=== PATIENT | male | born 1960 | race Caucasian/White ===

== ENCOUNTER 2017-08-19 05:50 | Inpatient (IN) | payer MEDICARE, OTHER ==
[~2017-08-19] VITALS: Ht 170.2 cm; Wt 86.6 kg
--- NOTE | 2017-08-19 10:00 | NUR ---
GPS RN NOTE PT IS A 57 Y/O MALE, BROUGHT INTO THE HOSPITAL BY AMBULANCE, ADMITTED ON A 5150 HOLD FOR DANGER TO OTHERS FROM [facility]. PT IS ADMITTED ON 5150 HOLD FOR DANGER TO OTHERS. PT WAS FOUND TO BE DISTURBING A BUSINESS, PT WAS CONTACTED AND STATED HE DID NOT FEEL WELL AND WANTED TO HURT OTHER PEOPLE. IT WAS DETERMINED PT WAS NOT TAKING HIS MEDICATIONS. PT IS ALERT AND ORIENTED X2, AMBULATORY, COOPERATIVE, DEPRESSED, FLAT AFFECT, DENIES SI/HI AT THE TIME OF ADMISSION, VS STABLE, PT IS ORIENTED TO THE UNIT, ALL VALUABLES HAVE BEEN CHECKED, ALL PAPERWORK AND COMPUTER WORK HAS BEEN SIGNED. Addendum: 08/19/17 at 1500 by RONAK ASHFORD RN PATIENT'S RIGHTS HANDBOOK HAS BEEN GIVEN AND EXPLAINED TO PT, PT VERBALIZES UNDERSTANDING. WILL MONITOR PT Q15MIN FOR SAFETY AND BEHAVIOR.
[2017-08-19] MEDS ORDERED: LORAZEPAM 0.5 MG TABLET PO PRN (13:30)
[2017-08-19] MEDS ORDERED: MAGNESIUM HYDROXIDE 30 ML UDC PO PRN ×2 (13:30→17:00)
[2017-08-19] MEDS ORDERED: MAG HYDROX/AL HYDROX/SIMETH 30 ML UDC PO PRN ×2 (13:30→17:00)
[2017-08-19] MEDS ORDERED: LINA5TAB PO (13:34)
[2017-08-19] MEDS ORDERED: BUPR300T52 PO (13:34)
[2017-08-19] MEDS ORDERED: QUET400T PO (13:34)
[2017-08-19] MEDS ORDERED: ATOR20TA PO (13:34)
[2017-08-19] MEDS ORDERED: INSU100I30 SQ (13:34)
[2017-08-19] MEDS ORDERED: GABA-534 PO (13:34)
[2017-08-19] MEDS ORDERED: METF500T4 PO (13:34)
[2017-08-19 16:00] VITALS: BP 148/89
[2017-08-19] MEDS ORDERED: ACETAMINOPHEN 325 MG TABLET PO PRN (17:00)
[2017-08-19] MEDS ORDERED: DEXTROSE 50%-WATER 50 ML DISP.SYRIN IV PRN ×2 (17:30→20:30)
[2017-08-19] MEDS: HALOPERIDOL 5 MG TABLET PO SCH (17:51)
[2017-08-19] MEDS: BENZTROPINE MESYLATE (1 MG) 1 MG TABLET PO SCH (17:51)
[2017-08-19] MEDS: INSULIN REGULAR, HUMAN 100 UNIT/ML 3 ML VIAL SQ PRN ×2 (18:03→21:34)
[2017-08-19] MEDS: BLOOD SUGAR DIAGNOSTIC 1 EACH STRIP IN SCH ×2 (18:05→21:33)
[2017-08-19 19:06] LABS: BASOPHILS % (AUTO) 0.5 % (0.0-2.0); EOSINOPHILS # (AUTO) 0.4 /CMM (0.0-0.7); EOSINOPHILS % (AUTO) 5.4 % (0.0-6.0); HEMATOCRIT 35 % (39-51); HEMOGLOBIN 11.7 g/dL (13.5-17.5); LYMPHOCYTES # (AUTO) 1.1 /CMM (0.8-4.8); LYMPHOCYTES % (AUTO) 14.9 % (20.0-44.0); MEAN CORPUSCULAR HEMOGLOBIN 30 PG (26.0-33.0); MEAN CORPUSCULAR HGB CONC 34 g/dl (31.0-36.0); MEAN CORPUSCULAR VOLUME 90 fL (80-96); MONOCYTES # (AUTO) 0.7 /CMM (0.1-1.30); MONOCYTES % (AUTO) 9.2 % (2.0-12.0); NEUTROPHILS # (AUTO) 5.3 /CMM (1.8-8.9); PLATELET COUNT (AUTO) 248 /CMM (150-450); RDW COEFFICIENT OF VARIATION 15.1 (11.5-15.0); WHITE BLOOD COUNT (AUTO) 7.6 K/uL (4.3-11.0)
[2017-08-19 20:14] VITALS: BP_SYST 148; BP_SYST 166; BP_DIAS 54; BP_DIAS 86
--- NOTE | 2017-08-19 20:24 | NUR ---
GPS RN NOTES: PAGED DR. MEDINA FOR MED RECON AND TO REFER TOTAL CREATININE KINASE RESULT OF 1141. SHE CALLED BACK NO FURTHER ORDERS GIVEN OF THIS TIME. WILL ENDORSE TO DAY SHIFT NURSE. HOME MEDS CONTINUED PER DR. DAVE.
[2017-08-19] MEDS ORDERED: INSULIN REGULAR, HUMAN 100 UNIT/ML 3 ML VIAL SQ PRN (20:30)
[2017-08-19] MEDS: GABAPENTIN 300 MG CAPSULE PO SCH (20:30)
[2017-08-19 21:30] LABS: CREATINE KINASE MB 2.4 ng/mL (0-3.6)
[2017-08-19] MEDS: ATORVASTATIN 10 MG TABLET PO SCH (21:30)
[2017-08-19] MEDS ORDERED: BLOOD SUGAR DIAGNOSTIC 1 EACH STRIP IN SCH (22:00)
--- NOTE | 2017-08-20 06:00 | NUR ---
GPS RN NOTES; SKIN AND BODY ASSESSMENT DONE. PICTURES DONE AND PLACED IN THE CHART. PATIENT ONLY ALLOWED HIS EXTREMITIES TO BE CHECKED. HE REFUSED HIS BACK AND ABDOMINAL AREA CHECKED. WILL ENDORSED PATIENT TO DAY SHIFT NURSE.
[2017-08-20 07:45] LABS: ALBUMIN 3.2 g/dL (3.4-5.0); BILIRUBIN,TOTAL 0.4 mg/dL (0.2-1.0); CALCIUM, SERUM 8.5 mg/dL (8.5-10.1); TOTAL PROTEIN, SERUM 6.8 g/dL (6.4-8.2)
[2017-08-20] MEDS: BLOOD SUGAR DIAGNOSTIC 1 EACH STRIP IN SCH ×4 (07:54→21:22)
[2017-08-20 08:00] VITALS: BP 132/80
[2017-08-20] MEDS ORDERED: METFORMIN 500 MG TABLET PO SCH (09:00)
--- NOTE | 2017-08-20 09:00 | NUR ---
GPS/RN-NOTES PATIENT BLOOD SUGAR WAS 180MG/DL, REFUSED 3 UNITS OF R INSULIN COVERAGE. STATED" NO INSULIN". EXPLAINED RISK AND BENEFITS STILL REFUSED. NO S/SX OF HYPERGLYCEMIA NOTED AT THIS TIME.WILL CONT. MONITORING.
[2017-08-20] MEDS: BENZTROPINE MESYLATE (1 MG) 1 MG TABLET PO SCH ×2 (09:50→17:09)
[2017-08-20] MEDS: HALOPERIDOL 5 MG TABLET PO SCH ×2 (09:51→17:09)
[2017-08-20] MEDS: GABAPENTIN 300 MG CAPSULE PO SCH ×3 (09:51→17:09)
[2017-08-20] MEDS: LINAGLIPTIN 5 MG TABLET PO SCH (09:52)
[2017-08-20 11:30] LABS: CREATINE KINASE MB 1.2 ng/mL (0-3.6)
[2017-08-20 12:22] LABS: ALBUMIN 3.3 g/dL (3.4-5.0); BILIRUBIN,TOTAL 0.4 mg/dL (0.2-1.0); CALCIUM, SERUM 8.7 mg/dL (8.5-10.1); POTASSIUM 4.4 mmol/L (3.5-5.1); TOTAL PROTEIN, SERUM 7.1 g/dL (6.4-8.2)
[2017-08-20] MEDS: INSULIN REGULAR, HUMAN 100 UNIT/ML 3 ML VIAL SQ PRN ×3 (12:36→21:43)
--- NOTE | 2017-08-20 12:41 | NUR ---
GPS/RN-NOTES PATIENT BLOOD SUGAR WAS 206 MG/DL, 4 UNITS OF R INSULIN GIVEN ORDERED.
[2017-08-20 16:00] VITALS: BP 146/55
[2017-08-20] MEDS: METFORMIN 850 MG TABLET PO SCH (17:09)
--- NOTE | 2017-08-20 17:29 | NUR ---
GPS/RN-NOTES PATIENT BLOOD SUGAR WAS 167 MG/DL, 3 UNITS OF R INSULIN GIVEN ORDERED.
--- NOTE | 2017-08-20 19:29 | NUR ---
GPS/RN-NOTES PATIENT REFUSED FULL BODY ASSESSMENT,DESPITE EXPLANATIONS OF UNIT POLICIES. PATIENT GETS ANGRY AT THE PRODUCT MARKETING EXECUTIVE AND STATED "LEAVE ME ALONE".
[2017-08-20] MEDS ORDERED: DIVALPROEX SODIUM 500 MG TABLET.DR PO SCH (20:00)
--- NOTE | 2017-08-20 20:00 | NUR ---
GPS RN NOTES: SKIN BODY REASSESSMENT CHECKED ON PATIENT'S BACK AND ABDOMINAL AREA ENDORSED BY DAY SHIFT NURSE SKIN INTACT AND CLEAR.
[2017-08-20 20:06] VITALS: BP 143/79
[2017-08-20] MEDS: ATORVASTATIN 10 MG TABLET PO SCH (21:07)
[2017-08-21] MEDS: BLOOD SUGAR DIAGNOSTIC 1 EACH STRIP IN SCH ×4 (07:31→22:05)
[2017-08-21] MEDS: GABAPENTIN 300 MG CAPSULE PO SCH ×3 (08:17→17:20)
[2017-08-21] MEDS: LINAGLIPTIN 5 MG TABLET PO SCH (08:17)
[2017-08-21] MEDS: BENZTROPINE MESYLATE (1 MG) 1 MG TABLET PO SCH ×2 (08:17→17:20)
[2017-08-21] MEDS: METFORMIN 850 MG TABLET PO SCH ×2 (08:17→17:20)
[2017-08-21] MEDS: HALOPERIDOL 5 MG TABLET PO SCH ×2 (08:17→17:20)
[2017-08-21] MEDS: INSULIN REGULAR, HUMAN 100 UNIT/ML 3 ML VIAL SQ PRN ×2 (09:36→17:32)
[2017-08-21 11:33] VITALS: BP 155/84
--- NOTE | 2017-08-21 12:08 | NUR ---
RN NOTE: ACCUCHECK WAS 176 AT 1200. PATIENT REFUSED COVERAGE.
[2017-08-21 16:00] VITALS: BP 111/67
[2017-08-21 21:02] VITALS: BP 113/66
[2017-08-21] MEDS: ATORVASTATIN 10 MG TABLET PO SCH (21:46)
--- NOTE | 2017-08-21 22:05 | NUR ---
GPS/RN-NOTES: PATIENT BLOOD SUGAR WAS 184MG/DL, REFUSED 3 UNITS OF R INSULIN COVERAGE. STATED" NO INSULIN". EXPLAINED RISK AND BENEFITS STILL REFUSED. WILL CONT. MONITORING. NO EPISODE OF HYPERGLYCEMIA NOTED.
[2017-08-22] MEDS: INSULIN REGULAR, HUMAN 100 UNIT/ML 3 ML VIAL SQ PRN ×2 (02:48→11:51)
[2017-08-22] MEDS: BLOOD SUGAR DIAGNOSTIC 1 EACH STRIP IN SCH ×4 (07:30→21:31)
[2017-08-22] MEDS: LINAGLIPTIN 5 MG TABLET PO SCH (08:07)
[2017-08-22] MEDS: BENZTROPINE MESYLATE (1 MG) 1 MG TABLET PO SCH ×2 (08:07→16:53)
[2017-08-22] MEDS: HALOPERIDOL 5 MG TABLET PO SCH ×2 (08:07→16:53)
[2017-08-22] MEDS: GABAPENTIN 300 MG CAPSULE PO SCH ×3 (08:07→16:53)
[2017-08-22] MEDS: METFORMIN 850 MG TABLET PO SCH ×2 (08:08→16:53)
[2017-08-22 08:31] VITALS: BP 162/80
--- NOTE | 2017-08-22 11:11 | NUR ---
Initial discharge plan: Patient is currently homeless. Patient states that he previously stayed with one of his daughters, but does not disclose who and does not want to involve her. ARSEN Morrison spoke with patient. Patient stated that he did not know where he wants to go and stated that he is going to go back to the streets. Later, patient asked SW to contact his sister Pretty [phone]. Patient stated that he could live with her in [place]. SW attempted to contact Pretty but her voicemail box was full and SW was unable to leave message. SW to follow up later. SW to facilitate safe discharge plan.
[2017-08-22] MEDS ORDERED: ESCITALOPRAM OXALATE (10 MG) 10 MG TABLET PO SCH (14:00)
[2017-08-22 16:49] VITALS: BP 126/81
[2017-08-22 20:00] VITALS: BP 132/83
[2017-08-22] MEDS: ATORVASTATIN 10 MG TABLET PO SCH (21:30)
[2017-08-22] MEDS: TEMAZEPAM 7.5 MG CAPSULE PO PRN (21:31)
--- NOTE | 2017-08-22 22:10 | NUR ---
GPS/RN-NOTES: PATIENT REFUSED BLOOD SUGAR TO BE CHECKED. STATED "LEAVE ME ALONE, I WANT TO REST". EXPLAINED RISK AND BENEFITS PT STILL REFUSED. WILL CONTINUE TO MONITOR FOR S/SX OF HYPO/HYPERGLYCEMIA.
[2017-08-23 08:00] VITALS: BP 134/87
[2017-08-23] MEDS: BLOOD SUGAR DIAGNOSTIC 1 EACH STRIP IN SCH ×4 (08:00→21:46)
[2017-08-23] MEDS: INSULIN REGULAR, HUMAN 100 UNIT/ML 3 ML VIAL SQ PRN ×2 (08:02→21:47)
[2017-08-23] MEDS: LINAGLIPTIN 5 MG TABLET PO SCH (08:18)
[2017-08-23] MEDS: GABAPENTIN 300 MG CAPSULE PO SCH ×3 (08:18→17:09)
[2017-08-23] MEDS: METFORMIN 850 MG TABLET PO SCH ×2 (08:18→17:09)
[2017-08-23] MEDS: BENZTROPINE MESYLATE (1 MG) 1 MG TABLET PO SCH ×2 (08:18→17:08)
[2017-08-23] MEDS: HALOPERIDOL 5 MG TABLET PO SCH ×3 (08:18→17:09)
--- NOTE | 2017-08-23 08:20 | NUR ---
GPS/RN-NOTES PATIENT BLOOD SUGAR WAS 209 MG/DL, 4 UNITS OF R INSULIN GIVEN ORDERED.
--- NOTE | 2017-08-23 10:33 | NUR ---
Discharge Planning: ARSEN contacted pts sister Pretty, for discharge planning purposes. ARSEN was unable to leave a message due to mailbox being full. ARSEN however was able to send a phone # as an option. ARSEN send . ARSEN will follow up to ensure pt is safely and properly discharged.
--- NOTE | 2017-08-23 12:15 | NUR ---
GPS/RN-NOTES PATIENT BLOOD SUGAR WAS 174 MG/DL, REFUSED 3 UNITS OF R INSULIN COVERAGE. STATED" NO INSULIN". EXPLAINED RISK AND BENEFITS STILL REFUSED. NO S/SX OF HYPERGLYCEMIA NOTED AT THIS TIME.WILL CONT. MONITORING.
[2017-08-23] MEDS: ESCITALOPRAM OXALATE (10 MG) 10 MG TABLET PO SCH (12:25)
--- NOTE | 2017-08-23 13:05 | NUR ---
Discharge Planning: SW spoke to pt, who provided his 's contact information (Maren [phone]). Pt asked SW to contact his so that she could call his sister Pretty and ask if he could go stay with her once he is ready for discharge. Maren was surprised and relieved that pt was doing okay. Per Maren, family did not know of his whereabouts and were worried. SW relayed pts message to Maren, who agreed to tell his sister. Per Deandreshayy, she lives with Pretty and stated, "If he wants to return here he could come and if he wants me to leave I could." SW will follow up to ensure pt is properly and safely discharged.
[2017-08-23 15:44] VITALS: BP 125/76
--- NOTE | 2017-08-23 17:40 | NUR ---
GPS/RN-NOTES PATIENT BLOOD SUGAR WAS 185 MG/DL, REFUSED 3 UNITS OF R INSULIN COVERAGE. STATED" I TAKE INSULIN ONLY WHEN MY BLOOD SUGAR IS MORE THAN 200". EXPLAINED RISK AND BENEFITS STILL REFUSED. NO S/SX OF HYPERGLYCEMIA NOTED AT THIS TIME.WILL CONT. MONITORING.
[2017-08-23 20:00] VITALS: BP 132/80
--- NOTE | 2017-08-23 21:40 | NUR ---
GPS/RN-NOTES PATIENT BLOOD SUGAR 187 MG/DL. PT REFUSED INSULIN COVERAGE. EXPLAINED RISK AND BENEFITS PT STILL REFUSED. NO S/SX OF HYPERGLYCEMIA. WILL CONTINUE TO MONITOR.
[2017-08-23] MEDS: ATORVASTATIN 10 MG TABLET PO SCH (21:47)
[2017-08-23] MEDS: TEMAZEPAM 7.5 MG CAPSULE PO PRN (21:47)
[2017-08-24] MEDS: BLOOD SUGAR DIAGNOSTIC 1 EACH STRIP IN SCH ×4 (07:38→21:49)
[2017-08-24] MEDS: LINAGLIPTIN 5 MG TABLET PO SCH (08:20)
[2017-08-24] MEDS: BENZTROPINE MESYLATE (1 MG) 1 MG TABLET PO SCH ×2 (08:20→17:06)
[2017-08-24] MEDS: GABAPENTIN 300 MG CAPSULE PO SCH ×3 (08:20→17:05)
[2017-08-24] MEDS: METFORMIN 850 MG TABLET PO SCH ×2 (08:20→17:06)
[2017-08-24] MEDS: HALOPERIDOL 5 MG TABLET PO SCH ×3 (08:20→17:06)
[2017-08-24] MEDS: INSULIN REGULAR, HUMAN 100 UNIT/ML 3 ML VIAL SQ PRN ×2 (08:24→12:15)
--- NOTE | 2017-08-24 08:30 | NUR ---
GPS/RN-NOTES PATIENT BLOOD SUGAR WAS 190 MG/DL, 3 UNITS OF R INSULIN GIVEN ORDERED.
[2017-08-24 08:32] VITALS: BP 135/84
[2017-08-24] MEDS: ESCITALOPRAM OXALATE (10 MG) 10 MG TABLET PO SCH (12:08)
--- NOTE | 2017-08-24 13:03 | NUR ---
GPS/RN-NOTES PATIENT BLOOD SUGAR WAS 184 MG/DL, 3 UNITS OF R INSULIN GIVEN ORDERED.
[2017-08-24 16:00] VITALS: BP 127/81
--- NOTE | 2017-08-24 18:01 | NUR ---
GPS/RN-NOTES PATIENT BLOOD SUGAR WAS 133 MG/DL, REFUSED 2 UNITS OF R INSULIN COVERAGE. STATED" NO INSULIN". EXPLAINED RISK AND BENEFITS STILL REFUSED. NO S/SX OF HYPERGLYCEMIA NOTED AT THIS TIME.WILL CONT. MONITORING.
[2017-08-24 20:00] VITALS: BP 131/81
[2017-08-24] MEDS: ATORVASTATIN 10 MG TABLET PO SCH (21:48)
[2017-08-24] MEDS: TEMAZEPAM 7.5 MG CAPSULE PO PRN (21:49)
--- NOTE | 2017-08-24 21:56 | NUR ---
Pt has been a bit anxious & guarded with depressed mood but compliant & redirectable.
[2017-08-25] MEDS: BLOOD SUGAR DIAGNOSTIC 1 EACH STRIP IN SCH ×4 (07:32→21:29)
[2017-08-25 08:00] VITALS: BP 134/74
--- NOTE | 2017-08-25 08:00 | NUR ---
GPS/RN-NOTES PATIENT BLOOD SUGAR WAS 190 MG/DL, REFUSED 3 UNITS OF R INSULIN COVERAGE. STATED" NO INSULIN". EXPLAINED RISK AND BENEFITS STILL REFUSED. NO S/SX OF HYPERGLYCEMIA NOTED AT THIS TIME.WILL CONT. MONITORING.
[2017-08-25] MEDS: GABAPENTIN 300 MG CAPSULE PO SCH ×3 (08:09→16:27)
[2017-08-25] MEDS: LINAGLIPTIN 5 MG TABLET PO SCH (08:09)
[2017-08-25] MEDS: HALOPERIDOL 5 MG TABLET PO SCH ×3 (08:09→16:27)
[2017-08-25] MEDS: BENZTROPINE MESYLATE (1 MG) 1 MG TABLET PO SCH ×2 (08:09→16:27)
[2017-08-25] MEDS: METFORMIN 850 MG TABLET PO SCH ×2 (08:09→16:27)
[2017-08-25] MEDS: INSULIN REGULAR, HUMAN 100 UNIT/ML 3 ML VIAL SQ PRN ×2 (12:08→17:50)
[2017-08-25] MEDS: ESCITALOPRAM OXALATE (10 MG) 10 MG TABLET PO SCH (12:11)
--- NOTE | 2017-08-25 12:18 | NUR ---
GPS/RN-NOTES PATIENT BLOOD SUGAR WAS 222 MG/DL, 4 UNITS OF R INSULIN GIVEN ORDERED.
[2017-08-25 16:00] VITALS: BP 117/76
--- NOTE | 2017-08-25 17:53 | NUR ---
GPS/RN-NOTES PATIENT BLOOD SUGAR WAS 208 MG/DL, 4 UNITS OF R INSULIN GIVEN ORDERED.
[2017-08-25 20:13] VITALS: BP 124/81
[2017-08-25] MEDS: ATORVASTATIN 10 MG TABLET PO SCH (21:29)
[2017-08-25] MEDS: TEMAZEPAM 7.5 MG CAPSULE PO PRN (21:29)
--- NOTE | 2017-08-25 22:00 | NUR ---
GPS RN NOTES: PATIENT REFUSED TO HAVE WEEKLY SKIN ASSESSMENT PICTURES TO BE DONE. PER PATIENT, "I HAVE ALREADY DONE IT WHEN I GOT HERE, I'M NOT DOING IT AGAIN". PATIENT THEN REQUESTED FOR HIS MEDICATION. WILL ENDORSE TO DAY SHIFT NURSE.
--- NOTE | 2017-08-26 07:45 | NUR ---
RN NOTE PATIENT REFUSED TO HAVE INSULIN THIS MORNING AFTER BLOOD SUGAR CHECKED. BLOOD SUGAR 164. EXPLAINED RISKS AND BENEFITS OF INSULIN. PATIENT STILL REFUSED
[2017-08-26 08:00] VITALS: BP 128/77
[2017-08-26] MEDS: BLOOD SUGAR DIAGNOSTIC 1 EACH STRIP IN SCH ×4 (08:01→21:12)
[2017-08-26] MEDS: GABAPENTIN 300 MG CAPSULE PO SCH ×3 (08:03→16:23)
[2017-08-26] MEDS: HALOPERIDOL 5 MG TABLET PO SCH ×3 (08:03→16:23)
[2017-08-26] MEDS: LINAGLIPTIN 5 MG TABLET PO SCH (08:03)
[2017-08-26] MEDS: BENZTROPINE MESYLATE (1 MG) 1 MG TABLET PO SCH ×2 (08:03→16:23)
[2017-08-26] MEDS: METFORMIN 850 MG TABLET PO SCH ×2 (08:03→16:23)
--- NOTE | 2017-08-26 11:48 | NUR ---
Discharge Planning: SW spoke to pts sisterIshmael for discharge planning purposes. SW listened attentively as pts sister talked about pt possibly using substances as a contributor to his current mental illness. SW confirmed that pt can return to sister's home once he is ready for discharge. Per pts sister, Pt and his have been living in her home for sometime. Pts Ishmael ovalle agreed to pick pt up once he is ready to discharge. Pts sister asked SW to tell her brother the following, "I love you and you could come home." SW will continue to follow through in order to arrange for a safe and proper discharge.
[2017-08-26] MEDS: INSULIN REGULAR, HUMAN 100 UNIT/ML 3 ML VIAL SQ PRN ×2 (11:57→21:11)
[2017-08-26] MEDS: ESCITALOPRAM OXALATE (10 MG) 10 MG TABLET PO SCH (12:00)
--- NOTE | 2017-08-26 12:00 | NUR ---
RN NOTE ROBERTO REPORTED TO ME THAT PATIENT SPOKE ON THE PHONE WITH MOTHER TELLING HER " I WANT TO KILL MYSELF AND THAT HE IS LEAVING TOMORROW". WILL NOTIFY CHARGE NURSE AND WILL NOTIFY .
--- NOTE | 2017-08-26 12:09 | NUR ---
RN NOTE 3 UNITS OF INSULIN GIVEN-199 BLOOD SUGAR
[2017-08-26 16:00] VITALS: BP 130/73
[2017-08-26 20:12] VITALS: BP 147/81
[2017-08-26] MEDS: ATORVASTATIN 10 MG TABLET PO SCH (21:05)
[2017-08-26] MEDS: TEMAZEPAM 7.5 MG CAPSULE PO PRN (21:05)
--- NOTE | 2017-08-27 00:33 | NUR ---
Pt c/o insomnia @ 2105. Restoril 7.5 mg 1cap prn given as pt requested. Effective post 1 hour asleep in bed easy to arouse. BS check done as ordered. 3 units reg insulin given per sliding scale. No s/s of hypo/hyperglycemia evident. Pt remains safe, calm and comfortable. Continue on 1:1 sitter. Will continue to monitor.
[2017-08-27] MEDS: BLOOD SUGAR DIAGNOSTIC 1 EACH STRIP IN SCH ×4 (07:50→21:03)
--- NOTE | 2017-08-27 07:53 | NUR ---
RN NOTE: ACCUCHECK WAS 158. PATIENT REFUSED COVERAGE. OFFERED 3X.
[2017-08-27 08:00] VITALS: BP 107/81
[2017-08-27] MEDS: HALOPERIDOL 5 MG TABLET PO SCH ×3 (08:45→16:36)
[2017-08-27] MEDS: LINAGLIPTIN 5 MG TABLET PO SCH (08:45)
[2017-08-27] MEDS: BENZTROPINE MESYLATE (1 MG) 1 MG TABLET PO SCH ×2 (08:45→16:36)
[2017-08-27] MEDS: METFORMIN 850 MG TABLET PO SCH ×2 (08:45→16:36)
[2017-08-27] MEDS: GABAPENTIN 300 MG CAPSULE PO SCH ×3 (08:45→16:36)
--- NOTE | 2017-08-27 11:24 | NUR ---
RN-CO: Dr Zuñiga discontinued 1:1 sitter, noted.
[2017-08-27] MEDS: ESCITALOPRAM OXALATE (10 MG) 10 MG TABLET PO SCH (12:17)
--- NOTE | 2017-08-27 14:59 | NUR ---
Discharge Planning: SW faxed inquiry (face sheet, medical H&P, P&P, and medication list) to [facility], [address] [place] [address]. [place] [address]; and fax # for discharge planning purposes. SW will follow up to ensure pt is properly and safely placed.
[2017-08-27 16:20] VITALS: BP 136/78
[2017-08-27] MEDS: INSULIN REGULAR, HUMAN 100 UNIT/ML 3 ML VIAL SQ PRN ×2 (18:47→21:08)
[2017-08-27 20:00] VITALS: BP 126/79
[2017-08-27 20:01] VITALS: BP 126/79
[2017-08-27] MEDS: ATORVASTATIN 10 MG TABLET PO SCH (21:03)
[2017-08-27] MEDS: TEMAZEPAM 7.5 MG CAPSULE PO PRN (21:03)
[2017-08-28] MEDS: BLOOD SUGAR DIAGNOSTIC 1 EACH STRIP IN SCH ×4 (07:43→21:23)
[2017-08-28 07:51] VITALS: BP 125/81
[2017-08-28] MEDS: BENZTROPINE MESYLATE (1 MG) 1 MG TABLET PO SCH ×2 (09:10→16:40)
[2017-08-28] MEDS: LINAGLIPTIN 5 MG TABLET PO SCH (09:10)
[2017-08-28] MEDS: GABAPENTIN 300 MG CAPSULE PO SCH ×3 (09:10→16:40)
[2017-08-28] MEDS: HALOPERIDOL 5 MG TABLET PO SCH ×3 (09:10→16:40)
[2017-08-28] MEDS: METFORMIN 850 MG TABLET PO SCH ×2 (09:11→16:40)
--- NOTE | 2017-08-28 11:41 | NUR ---
Discharge Planning: SW received a call from Ariella from [facility] who stated their facility would not be able to accept pt due to nature of pts S/I and H/I. ARSEN will follow up by faxing other facilities.
--- NOTE | 2017-08-28 11:50 | NUR ---
Discharge Planning: ARSEN made arrangements with Lauro from [facility] to come and assess pt at [facility] to determine his appropriateness for their facility on today's date. ARSEN will follow up to ensure pt is safely and properly discharged.
--- NOTE | 2017-08-28 11:54 | NUR ---
Discharge Planning: SW gathered that Lauro from [facility] had concerns about Atul Dewey' appropriateness for their facility due to information found on pts consultation note (dated 08/19/[address] Hester), which mentions pt [facility] into a [facility] with [facility]. SW informed Lauro that this information was incorrect and pertained to another patient (i.e. Robbie Rodríguez). SW contacted Dr. Hester, to inform her of the error. SW also informed her that this was delaying pts discharge. SW will follow up to ensure pt is properly and safely discharged.
[2017-08-28] MEDS: ESCITALOPRAM OXALATE (10 MG) 10 MG TABLET PO SCH (12:29)
--- NOTE | 2017-08-28 12:30 | NUR ---
RN NOTE: PATIENT REFUSED COVERAGE FOR BLOOD SUGAR.
[2017-08-28 16:11] VITALS: BP 127/77
--- NOTE | 2017-08-28 17:02 | NUR ---
RN NOTE: PATIENT DID ACCUCHECK, BUT DID NOT WANT COVERAGE. OFFERED 3X.
[2017-08-28] MEDS: ACETAMINOPHEN 325 MG TABLET PO PRN (20:05)
--- NOTE | 2017-08-28 20:13 | NUR ---
Tylenol 650 mg tab po given for right hip pain, 3/10 on pain scale
[2017-08-28 20:26] VITALS: BP 136/76
[2017-08-28] MEDS: ATORVASTATIN 10 MG TABLET PO SCH (21:24)
[2017-08-28] MEDS: INSULIN REGULAR, HUMAN 100 UNIT/ML 3 ML VIAL SQ PRN (21:27)
--- NOTE | 2017-08-28 21:27 | NUR ---
ACCUCHECK 134 MG/DL, PATIENT REFUSED COVERAGE. EXPLAINED BENEFITS OF THE MEDICATION X2, STILL REFUSED. WILL MONITOR
[2017-08-28] MEDS: TEMAZEPAM 7.5 MG CAPSULE PO PRN (22:03)
--- NOTE | 2017-08-28 22:26 | NUR ---
Restoril 7.5 mg cap 1 po given
--- NOTE | 2017-08-29 00:11 | NUR ---
PATIENT SLEEPING AT THIS TIME
[2017-08-29] MEDS: BLOOD SUGAR DIAGNOSTIC 1 EACH STRIP IN SCH ×2 (07:55→12:09)
[2017-08-29 08:00] VITALS: BP_SYST 108; BP_SYST 116; BP_DIAS 67; BP_DIAS 75
--- NOTE | 2017-08-29 08:00 | NUR ---
GPS/RN-NOTES PATIENT BLOOD SUGAR WAS 162 MG/DL, REFUSED 3 UNITS OF R INSULIN COVERAGE. STATED" NO INSULIN". EXPLAINED RISK AND BENEFITS STILL REFUSED. NO S/SX OF HYPERGLYCEMIA NOTED AT THIS TIME.WILL CONT. MONITORING.
[2017-08-29] MEDS: GABAPENTIN 300 MG CAPSULE PO SCH ×2 (08:36→12:15)
[2017-08-29] MEDS: HALOPERIDOL 5 MG TABLET PO SCH ×2 (08:36→12:17)
[2017-08-29] MEDS: METFORMIN 850 MG TABLET PO SCH (08:36)
[2017-08-29] MEDS: BENZTROPINE MESYLATE (1 MG) 1 MG TABLET PO SCH (08:36)
[2017-08-29] MEDS: LINAGLIPTIN 5 MG TABLET PO SCH (08:36)
[2017-08-29] MEDS: ACETAMINOPHEN 325 MG TABLET PO PRN (09:08)
--- NOTE | 2017-08-29 09:08 | NUR ---
GPS/RN-NOTES PATIENT C/O HEADACHE AND REQUESTING FOR TYLENOL, TYLENOL 650MG P.O GIVEN PRN ORDER. WILL CONT. MONITORING FOR SAFETY.
--- NOTE | 2017-08-29 11:46 | NUR ---
Discharge Planning: ARSEN faxed inquiry (face sheet, medical H&P, P&P, consultation, and medication list) to Lauro from [facility], [address]. [facility] [address]; and fax # . ARSEN will follow up to ensure pt is properly discharged. Addendum: 08/29/17 at 1150 by KINDRA LEGER Inquiry to [facility] was faxed on 08/28/17.
--- NOTE | 2017-08-29 12:04 | NUR ---
Discharge Planning: SW contacted Dr. Hester on this date to discuss pts note dated 08/19/17. Per, Dr. Hester, she agreed to make the corrections. SW will follow up.
--- NOTE | 2017-08-29 12:07 | NUR ---
Discharge Planning: ARSEN faxed Lauro from [facility] an updated inquiry for review. ARSEN also informed Dr. Zuñiga, pts Psychiatrist that corrections to note dated 08/19/[address] Hester. ARSEN will follow up with Lauro regarding pts placement.
--- NOTE | 2017-08-29 12:13 | NUR ---
Discharge Planning: ARSEN received a call from Srinivasan from [facility] informing that pt has been accepted to facility and can discharge on this date. ARSEN will inform pts psychiatrist for discharge planning purposes. ARSEN will follow up to ensure pt is safely and properly discharged.
[2017-08-29] MEDS: ESCITALOPRAM OXALATE (10 MG) 10 MG TABLET PO SCH (12:15)
[2017-08-29] MEDS: INSULIN REGULAR, HUMAN 100 UNIT/ML 3 ML VIAL SQ PRN (12:23)
--- NOTE | 2017-08-29 12:31 | NUR ---
GPS/RN-NOTES PATIENT BLOOD SUGAR WAS 213 MG/DL, 4 UNITS OF R INSULIN GIVEN ORDERED.
[2017-08-29 16:14] VITALS: BP 109/16
--- NOTE | 2017-08-29 16:30 | NUR ---
GPS/RN-NOTES PATIENT DISCHARGE TO [facility] TODAY. DR. ANGELA AND DR. DICKEY AWARE AND AGREES OF PATIENT DISCHARGE. REPORT WAS GIVEN TO [place] ( BUTT TRIMMER). PATIENT DID NOT VERBALIZE SI/HI,DENIES VISUAL/AUDITORY HALLUCINATIONS AT THE TIME OF DISCHARGE. ALL DISCHARGE MEDICATIONS WAS REVIEWED WITH THE PATIENT WITH UNDERSTANDING. PATIENT FRED ) AWARE OF PATIENT DISCHARGE. PATIENT LEFT THE UNIT IN STABLE CONDITION,AMBULATORY WITH ALL HIS BELONGINGS.INVESTMENT BANKING ASSOCIATE BY AMBULANCE [employer]IA [employer] WITH TWO STAFF ASSIST.
--- NOTE | 2017-08-29 16:35 | NUR ---
Discharge Note: Patient will be discharged to [facility], [address] [facility] [address]; via ambulance at 4:15 pm (trip # [id number]). Pt and pts Maren, have been notified and are in agreement. Pts hot strip mill supervisor will be Dr. Alicea, [address] [place] [address]; and psychiatrist will be Dr. Zuñiga, [address] [place]. [id number]; .
== END 2017-08-29 16:30 | DRG 885 ==
LOC: GPS 09:46
PROVIDERS: ADMIT Psychiatry & Neurology Psychosomatic Medicine; ATTEND Internal Medicine
DX: F25.0 Schizoaffective disorder, bipolar type (principal); E11.65 Type 2 diabetes mellitus with hyperglycemia; M62.82 Rhabdomyolysis; E11.42 Type 2 diabetes mellitus with diabetic polyneuropathy; E44.1 Mild protein-calorie malnutrition; Z59.0 Homelessness; E78.5 Hyperlipidemia, unspecified; E86.0 Dehydration; I10 Essential (primary) hypertension; Z73.6 Limitation of activities due to disability; F32.9 Major depressive disorder, single episode, unspecified; Z79.84 Long term (current) use of oral hypoglycemic drugs; Z68.29 Body mass index [BMI] 29.0-29.9, adult; F29 Unspecified psychosis not due to a substance or known physiological condition
CPT/HCPCS: 36415; 80053-TC; 80061-TC; 82550-TC; 82553-TC; 82962-TC; 85025-TC; J1815